=== PATIENT | male | born 1935 | race Caucasian/White ===

== ENCOUNTER 2019-03-18 15:19 | Inpatient (IN) ==
[2019-03-18] MEDS ORDERED: DUONEB 0.5 MG/3 MG NEB ONE (15:49)
--- NOTE | 2019-03-18 15:51 | DR.ABDMALE ---
HPI Time seen Time Seen by Provider: 03/18/19 15:40 PCP Primary Care Physician: SANG Complaint Chief Complaint Doctors Comments: An 83 y/o male presenting with nausea and vomiting since yesterday. His spouse states that he vomited everytime he ate or drank. He was seen by his PCP 2 days ago for cold/sinus issues. At that time he states he received an injection and antibiotic. In triage the nurse was concerned with his breathing and BP. He has no c/o chest pain. Chief Complaint:: NASAL CONGESTION AND SAW DR. DOMÍNGUEZ ON THURSDAY AND WAS GIVEN INJECTION AND ANTIBIOTIC. SINCE THEN HAS HAD INCREASED ABD PAIN WITH NAUSEA AND VOMITING. NO DIARRHEA. Reviewed Nurses Notes Review: Yes Mode of arrival Mode of Arrival: Ambulatory Timing Onset of Chief Complaint: 03/16/19 Came on: Gradually PMH PMH Past Medical History: Yes Past Medical History: Arthritis, CHF, Coronary Artery Disease, Dyslipidemia, Hypertension and VA Past Surgical History: Yes Surgical History: CABG/Valve Surgery Past Surgical History Comment: BACK SURGERY AT AGE 20 Family History History of Family Medical Conditions: Yes Family Medical History: Diabetes Mellitus, VA, Coronary Artery Disease and Hypertension Social History Type of Tobacco Use: Cigarettes Alcohol Use: None Do you use any recreational Drugs:: No Lives With: Spouse Lives Where: Home infectious screening In the last 2 months have you had wt loss of >10#?: NO Have you had fever, night sweats or hemotysis?: No Have you traveled outside the country in the last 6 months?: No Isolation: Standard ROS Review of Systems Constitutional: No Symptoms Reported Eyes: No Symptoms Reported ENTM: No Symptoms Reported Respiratoy: No Symptoms Reported Cardiovascular: No Symptoms Reported Gastrointestinal/Abdominal: Nausea and Vomiting Genitourinary: No Symptoms Reported Neurological: No Symptoms Reported Musculoskeletal: No Symptoms Reported Integumentary: No Symptoms Reported Hematologic/Lymphatic: No Symptoms Reported Endocrine: No Symptoms Reported Psychiatric: No Symptoms Reported PE Vital Signs Vital Signs: Temp Pulse Resp BP BP Pulse Ox 03/18/19 15:27 97.6 F 60 24 116/64 88 L 07/14/15 10:00 115/63 General Limitations: No Limitations General Appearance: Alert and In No Apparent Distress Head Head Exam: Normal Inspection, Atraumatic and Normocephalic Eyes Eye exam: Normal Appearance, PERRL and EOMI ENT ENT Exam: Normal Exam, Normal Oropharynx and Mucous Membranes Moist Neck Neck Exam: Normal Inspection, Full ROM and Trachea Midline Chest Chest Inspection: Normal Inspection and Symmetric Chest Wall Rise Respiratory Respiratory Exam: Normal Lung Sounds Bilat Cardiovascular Cardiovascular Exam: Regular Rate, Normal Rhythm, +S1 and +S2 Abdominal Exam Abdominal Exam: Normal Inspection, Normal Bowel Sounds and Soft Rectal Rectal Exam: Deferred Back Back Exam: Normal Inspection and Full ROM Extremeties Extremities Exam: Normal Inspection and Full ROM Exam: Male: Deferred Neurologic Neurological Exam: Alert and Oriented X3 Psychiatric Psychiatric Exam: Normal Affect and Normal Mood Skin Skin Exam: Dry and Normal Color COURSE Reevaluation 1st: Improved 2nd: Improved Consultation Consultation Comments: Case presentation and findings were discussed with recreation programmer provider, Dr. SPARKS. He agrees to have pt. admitted to his service. Education/Counseling Education/Counseling: Patient, Family, Education and Counseling Educated On: Treatment, Diagnosis, Prognosis and Needs for Follow Up ROR Labs Reviewed Laboratory Results Reviewed?: Yes Result Diagrams: 03/18/19 15:53 03/18/19 15:53 Laboratory: WBC 9.1 X10^3/uL (3.6-10.0) 03/18/19 15:53 RBC 4.19 X10^6/uL (4.7-6.0) L 03/18/19 15:53 Hgb 13.6 g/dL (13.5-18.0) 03/18/19 15:53 Hct 40.9 % (42.0-54.0) L 03/18/19 15:53 MCV 97.7 fL (80.0-100.0) 03/18/19 15:53 MCH 32.6 pg (27.0-34.0) 03/18/19 15:53 MCHC 33.4 g/dL (33.0-35.0) 03/18/19 15:53 RDW 15.2 % (11.6-16.5) 03/18/19 15:53 Plt Count 147 X10^3/uL (150.0-450.0) L 03/18/19 15:53 MPV 8.5 fL (7.4-11.0) 03/18/19 15:53 Neut % (Auto) 78.6 % (42.0-75.0) H 03/18/19 15:53 Lymph % (Auto) 8.2 % (21.0-51.0) L 03/18/19 15:53 [place] % (Auto) 13.0 % (0.0-13.0) 03/18/19 15:53 Eos % (Auto) 0.0 % (0.9-2.9) L 03/18/19 15:53 Baso % (Auto) 0.2 % (0.2-1.0) 03/18/19 15:53 Neut # (Auto) 7.2 x10^3/uL (2.2-4.8) H 03/18/19 15:53 Lymph # (Auto) 0.7 X10^3/uL (1.3-2.9) L 03/18/19 15:53 [place] # (Auto) 1.2 x10^3/uL (0.3-0.8) H 03/18/19 15:53 Eos # (Auto) 0.0 x10^3/uL (0.0-0.2) 03/18/19 15:53 Baso # (Auto) 0.0 X10^3/uL (0.0-0.1) 03/18/19 15:53 Absolute Nucleated RBC 0.2 /100WBC 03/18/19 15:53 Sample Site Rrad 03/18/19 17:14 ABG pH 7.350 (7.35-7.45) 03/18/19 17:14 ABG pCO2 53.0 mmHg (35.0-45.0) H* 03/18/19 17:14 ABG pO2 44.0 mmHg (80.0-100.0) L* 03/18/19 17:14 ABG HCO3 29.3 mmol/L (22-26) H 03/18/19 17:14 ABG O2 Saturation 77.0 % (90-100) L* 03/18/19 17:14 ABG Base Excess 2.7 mmol/L (-2.0-2.0) H 03/18/19 17:14 [place] Test Pos 03/18/19 17:14 A-a Gradient 118.0 mmHg 03/18/19 17:14 FiO2 32.0 03/18/19 17:14 Blood Gas Comments Pt charu well elj 03/18/19 17:14 Sodium 137 mmol/L (136-145) 03/18/19 15:53 Corrected Sodium TNP 03/18/19 15:53 Potassium 4.8 mmol/L (3.5-5.1) 03/18/19 15:53 Chloride 98 mmol/L (98-107) 03/18/19 15:53 Carbon Dioxide 29.4 mmol/L (21-32) 03/18/19 15:53 BUN 42 mg/dL (7-18) H 03/18/19 15:53 Creatinine 2.46 mg/dL (0.70-1.30) H 03/18/19 15:53 Est GFR (MDRD) Af Amer 33 (>60) L 03/18/19 15:53 Est GFR (MDRD) Non-Af 27 (>60) L 03/18/19 15:53 Glucose 97 mg/dL (65-99) 03/18/19 15:53 Calcium 9.9 mg/dL (8.5-10.1) 03/18/19 15:53 Corrected Calcium TNP 03/18/19 15:53 Total Bilirubin 1.00 mg/dL (0.2-1.0) 03/18/19 15:53 AST 318 Units/L (15-37) H 03/18/19 15:53 ALT 283 Units/L (12-78) H 03/18/19 15:53 Alkaline Phosphatase 85 Units/L (46-116) 03/18/19 15:53 Creatine Kinase 91 Units/L (39-308) 03/18/19 15:53 CK-MB (CK-2) 2.3 ng/mL (0-4.0) 03/18/19 15:53 CK/CKMB % Calc 2.5 % (<4) 03/18/19 15:53 Troponin I 0.03 ng/mL (0-1.5) 03/18/19 15:53 B-Natriuretic Peptide 2650 pg/mL (0-79) H* 03/18/19 15:53 Total Protein 7.2 g/dL (6.4-8.2) 03/18/19 15:53 Albumin 3.5 g/dL (3.4-5.0) 03/18/19 15:53 Globulin 3.7 g/dL (2.5-4.5) 03/18/19 15:53 Albumin/Globulin Ratio 0.9 Ratio (1.1-2.1) L 03/18/19 15:53 Other Results Comments: Unchanged, moderately severe cardiomegaly. Atelectasis, Rt. lung base.- CXR report EKG Rate: 60 [place]: Normal Rhythm: Paced Block: None Hypertrophy: None Opioid Opioid Risk Tool Age (Levon box if 16-45): No History of Preadolescent Sexual Abuse: No Total: 0 Total Score Risk Category: Low Risk Copyright: [facility] predicting aberrant behaviors Diagnosis Discharge Problem: Chronic kidney disease (CKD) stage G3a/A1, moderately decreased glomerular filtration rate (GFR) between 45-59 mL/min/1.73 square meter and albuminuria creatinine ratio less than 30 mg/g, Old inferior wall myocardial infarction, Thrombocytopenia, Atelectasis A-fib Qualifiers: Atrial fibrillation type: unspecified Qualified Code(s): I48.91 - Unspecified atrial fibrillation Hypotension Qualifiers: Hypotension type: unspecified hypotension type Qualified Code(s): I95.9 - Hypotension, unspecified
[2019-03-18] MEDS ORDERED: DUONEB 0.5 MG/3 MG ONE (15:58)
[2019-03-18 16:05] LABS: BASOPHILS % (AUTO) 0.2 % (0.2-1.0); HEMATOCRIT 40.9 % (42.0-54.0); HEMOGLOBIN 13.6 g/dL (13.5-18.0); LYMPHOCYTES # (AUTO) 0.7 X10^3/uL (1.3-2.9); LYMPHOCYTES % (AUTO) 8.2 % (21.0-51.0); MEAN CORPUSCULAR HEMOGLOBIN 32.6 pg (27.0-34.0); MEAN CORPUSCULAR HGB CONC 33.4 g/dL (33.0-35.0); MEAN CORPUSCULAR VOLUME 97.7 fL (80.0-100.0); MEAN PLATELET VOLUME 8.5 fL (7.4-11.0); MONOCYTES # (AUTO) 1.2 x10^3/uL (0.3-0.8); NEUTROPHILS # (AUTO) 7.2 x10^3/uL (2.2-4.8); NEUTROPHILS % (AUTO) 78.6 % (42.0-75.0); PLATELET COUNT 147 X10^3/uL (150.0-450.0); RED BLOOD COUNT 4.19 X10^6/uL (4.7-6.0); RED CELL DISTRIBUTION WIDTH 15.2 % (11.6-16.5); WHITE BLOOD COUNT 9.1 X10^3/uL (3.6-10.0)
--- NOTE | 2019-03-18 16:13 | RAD ---
History: Increasing abdominal pain with nausea and vomiting. Nasal congestion. Study: AP chest Comparison: July 14, 2015 graph findings: There is unchanged moderate cardiomegaly status post CABG. There is an intact AICD wire via the left subclavian vein. There is relatively limited inspiration with subsegmental atelectasis at the right lung base. There is no obvious effusion. Impression: 1. Unchanged moderately severe cardiomegaly 2. Subsegmental atelectasis at the right lung base Reported By:
[2019-03-18 16:18] LABS: ALANINE AMINOTRANSFERASE 283 Units/L (12-78); ALBUMIN 3.5 g/dL (3.4-5.0); ALKALINE PHOSPHATASE 85 Units/L (46-116); ASPARTATE AMINO TRANSFERASE 318 Units/L (15-37); BLOOD UREA NITROGEN 42 mg/dL (7-18); CALCIUM 9.9 mg/dL (8.5-10.1); CARBON DIOXIDE 29.4 mmol/L (21-32); CHLORIDE 98 mmol/L (98-107); CREATININE 2.46 mg/dL (0.70-1.30); SODIUM 137 mmol/L (136-145); TOTAL PROTEIN 7.2 g/dL (6.4-8.2); eGFR NON BLACK RACES 27 (>60)
[2019-03-18] MEDS ORDERED: ZOFRAN INJ 4 MG VIAL IVP ONE (16:24)
[2019-03-18] MEDS ORDERED: NS 500 ML IV 500 ML IV ONE ×2 (16:24→16:53)
[2019-03-18 16:52] LABS: CKMB % 2.5 % (<4); CREATINE KINASE MB 2.3 ng/mL (0-4.0); TROPONIN I 0.03 ng/mL (0-1.5)
[2019-03-18] MEDS ORDERED: ZOFRAN INJ 4 MG VIAL ONE (16:53)
[2019-03-18 17:21] LABS: ABG BASE EXCESS 2.7 mmol/L (-2.0-2.0); ABG HCO3 29.3 mmol/L (22-26)
[2019-03-18 17:22] LABS: ABG ALLEN TEST POS
[2019-03-18] MEDS ORDERED: BETAPACE AF PO ONE (21:12)
[2019-03-18] MEDS ORDERED: CRESTOR TAB 10 MG PO ONE (21:12)
[2019-03-18] MEDS: NS 1000 ML 1,000 ML IV SCH (21:15)
[2019-03-18] MEDS: BETAPACE AF PO SCH (21:16)
[2019-03-18] MEDS: RANEXA PO SCH (21:16)
[2019-03-18] MEDS: CRESTOR TAB 10 MG PO SCH (21:16)
[2019-03-18 22:33] VITALS: BMI 29.3
[2019-03-19] MEDS: DUONEB 0.5 MG/3 MG NEB SCH ×4 (00:35→17:19)
[2019-03-19] MEDS: NS 1000 ML 1,000 ML IV SCH ×4 (04:03→20:18)
[2019-03-19 05:21] LABS: BASOPHILS % (AUTO) 0.2 % (0.2-1.0); EOSINOPHILS % (AUTO) 0.1 % (0.9-2.9); HEMATOCRIT 40.2 % (42.0-54.0); HEMOGLOBIN 13.5 g/dL (13.5-18.0); LYMPHOCYTES # (AUTO) 0.8 X10^3/uL (1.3-2.9); LYMPHOCYTES % (AUTO) 10.4 % (21.0-51.0); MEAN CORPUSCULAR HEMOGLOBIN 32.4 pg (27.0-34.0); MEAN CORPUSCULAR HGB CONC 33.5 g/dL (33.0-35.0); MEAN CORPUSCULAR VOLUME 96.8 fL (80.0-100.0); MEAN PLATELET VOLUME 8.5 fL (7.4-11.0); MONOCYTES # (AUTO) 0.9 x10^3/uL (0.3-0.8); MONOCYTES % (AUTO) 11.2 % (0.0-13.0); NEUTROPHILS % (AUTO) 78.1 % (42.0-75.0); PLATELET COUNT 119 X10^3/uL (150.0-450.0); RED BLOOD COUNT 4.15 X10^6/uL (4.7-6.0); RED CELL DISTRIBUTION WIDTH 15.1 % (11.6-16.5); WHITE BLOOD COUNT 7.7 X10^3/uL (3.6-10.0)
[2019-03-19 05:43] LABS: ALANINE AMINOTRANSFERASE 314 Units/L (12-78); ALBUMIN 2.8 g/dL (3.4-5.0); ALKALINE PHOSPHATASE 70 Units/L (46-116); ASPARTATE AMINO TRANSFERASE 340 Units/L (15-37); BLOOD UREA NITROGEN 45 mg/dL (7-18); CALCIUM 8.9 mg/dL (8.5-10.1); CARBON DIOXIDE 28.5 mmol/L (21-32); CHLORIDE 102 mmol/L (98-107); COR CA(FOR HYPOALB) 9.9 mg/dL (8.5-10.1); SODIUM 138 mmol/L (136-145); TOTAL PROTEIN 6.2 g/dL (6.4-8.2); eGFR NON BLACK RACES 31 (>60)
[2019-03-19] MEDS: RANEXA PO SCH ×2 (08:07→20:18)
[2019-03-19] MEDS: ZyrTEC SYRUP 1 MG/ML 5ml unit dose PO SCH (08:07)
[2019-03-19] MEDS: BETAPACE AF PO SCH ×2 (08:07→20:18)
[2019-03-19] MEDS ORDERED: ZyrTEC TAB 10 MG PO SCH (09:00)
[2019-03-19] MEDS ORDERED: LASIX IVP ONE ×2 (10:08→13:59)
[2019-03-19] MEDS ORDERED: LASIX ONE (13:59)
[2019-03-19] MEDS: LEVAQUIN TAB 500 MG PO SCH (14:04)
[2019-03-19] MEDS ORDERED: ASTELIN NASAL SPRAY ENOSTRIL ONE (14:09)
[2019-03-19] MEDS: FLONASE NASAL SPRAY ENOSTRIL SCH (14:10)
[2019-03-19] MEDS: ASTELIN NASAL SPRAY ENOSTRIL SCH ×3 (14:10→21:17)
[2019-03-19] MEDS: CRESTOR TAB 10 MG PO SCH (20:18)
[2019-03-19] MEDS: LASIX IVP SCH (20:19)
[2019-03-20] MEDS: DUONEB 0.5 MG/3 MG NEB SCH ×4 (00:05→17:10)
[2019-03-20] MEDS: NS 1000 ML 1,000 ML IV SCH (05:53)
--- NOTE | 2019-03-20 06:13 | RAD ---
HISTORY: SOB Study: Portable chest Comparison: 03/20/2019 Findings: Stable cardiomediastinal silhouette with sequelae of sternotomy. AICD again noted. Right hemidiaphragm elevation with right basilar atelectasis again seen. The dense left retrocardiac opacity unchanged. Mid and upper lungs appear grossly clear. No visible pneumothorax or gross effusion. IMPRESSION: 1. Stable exam with bibasilar opacities. Reported By:
[2019-03-20] MEDS: ASTELIN NASAL SPRAY ENOSTRIL SCH ×2 (06:24→21:29)
[2019-03-20] MEDS: LASIX IVP SCH ×2 (08:44→20:01)
[2019-03-20] MEDS ORDERED: LASIX ONE (08:54)
[2019-03-20] MEDS ORDERED: ALBUMIN HUMAN 25%- 100 ML 100 ML ONE (08:55)
[2019-03-20] MEDS ORDERED: LASIX IVP SCH (09:00)
[2019-03-20] MEDS ORDERED: ALBUMIN HUMAN 25%- 100 ML 100 ML IV SCH (09:00)
[2019-03-20] MEDS ORDERED: LASIX IVP ONE (09:00)
[2019-03-20] MEDS: BETAPACE AF PO SCH ×2 (09:02→20:01)
[2019-03-20] MEDS: FLONASE NASAL SPRAY ENOSTRIL SCH (09:02)
[2019-03-20] MEDS: LEVAQUIN TAB 500 MG PO SCH (09:02)
[2019-03-20] MEDS: RANEXA PO SCH ×2 (09:02→20:01)
[2019-03-20] MEDS: ZyrTEC SYRUP 1 MG/ML 5ml unit dose PO SCH (09:03)
[2019-03-20 09:43] LABS: BASOPHILS % (AUTO) 0.2 % (0.2-1.0); EOSINOPHILS % (AUTO) 0.4 % (0.9-2.9); HEMATOCRIT 40.3 % (42.0-54.0); HEMOGLOBIN 13.3 g/dL (13.5-18.0); LYMPHOCYTES # (AUTO) 0.7 X10^3/uL (1.3-2.9); LYMPHOCYTES % (AUTO) 10.8 % (21.0-51.0); MEAN CORPUSCULAR HGB CONC 32.9 g/dL (33.0-35.0); MEAN CORPUSCULAR VOLUME 97.5 fL (80.0-100.0); MEAN PLATELET VOLUME 8.2 fL (7.4-11.0); MONOCYTES # (AUTO) 0.8 x10^3/uL (0.3-0.8); MONOCYTES % (AUTO) 11.3 % (0.0-13.0); NEUTROPHILS # (AUTO) 5.2 x10^3/uL (2.2-4.8); NEUTROPHILS % (AUTO) 77.3 % (42.0-75.0); PLATELET COUNT 114 X10^3/uL (150.0-450.0); RED BLOOD COUNT 4.14 X10^6/uL (4.7-6.0); RED CELL DISTRIBUTION WIDTH 15.5 % (11.6-16.5); WHITE BLOOD COUNT 6.7 X10^3/uL (3.6-10.0)
[2019-03-20 09:55] LABS: ALBUMIN 2.6 g/dL (3.4-5.0); CALCIUM 8.2 mg/dL (8.5-10.1); CARBON DIOXIDE 28.9 mmol/L (21-32); COR CA(FOR HYPOALB) 9.3 mg/dL (8.5-10.1); CREATININE 2.62 mg/dL (0.70-1.30); TOTAL PROTEIN 5.9 g/dL (6.4-8.2)
[2019-03-20] MEDS: LOVENOX INJ 30 MG SYR SC SCH (20:00)
[2019-03-20] MEDS: CRESTOR TAB 10 MG PO SCH (20:02)
[2019-03-21] MEDS: DUONEB 0.5 MG/3 MG NEB SCH ×4 (00:35→18:38)
[2019-03-21] MEDS: ASTELIN NASAL SPRAY ENOSTRIL SCH ×4 (06:29→21:01)
[2019-03-21] MEDS: FLONASE NASAL SPRAY ENOSTRIL SCH (09:13)
[2019-03-21] MEDS: BETAPACE AF PO SCH ×2 (09:13→20:08)
[2019-03-21] MEDS: RANEXA PO SCH ×2 (09:14→20:08)
[2019-03-21] MEDS: LOVENOX INJ 30 MG SYR SC SCH (09:14)
[2019-03-21] MEDS: ZyrTEC SYRUP 1 MG/ML 5ml unit dose PO SCH (09:15)
[2019-03-21 09:33] LABS: ABG BASE EXCESS 6.7 mmol/L (-2.0-2.0)
[2019-03-21 09:35] LABS: ABG HCO3 33.9 mmol/L (22-26)
[2019-03-21] MEDS: LASIX IVP SCH ×2 (11:01→20:08)
--- NOTE | 2019-03-21 11:23 | US ---
HISTORY: Abdominal pain. Prior history of CHF, CAD, hypertension and ME. Study: Ultrasound of the abdomen complete Comparison: No priors Technique: Grayscale, duplex and color Doppler evaluation of the liver is provided . Findings: The liver is not enlarged. Liver measures 7 mm in length. There is diffuse hepatic steatosis. There is perihepatic ascites present within the intralobar fissure. No evidence of liver mass or ductal ectasia is seen. The common bile duct measures 1.9 mm in caliber. Color and duplex Doppler flow reveals hepatopetal flow of the portal vein. Hepatic venous flow is hepatopetal. There is wall thickening involving the gallbladder wall which measures 6.7 mm. A tiny non shadowing echogenic focus is present within the gallbladder measuring 3.9 mm. This is suspect for a small gallstone. Perihepatic ascitic fluid is seen to surround the gallbladder laterally. Findings are likely on the basis of hypoproteinemia. Pancreas appears normal. Spleen appears normal. IVC is normal. The abdominal aorta is not well seen. Right kidney measures 9.11 cm with 0.75 cm cortical thickness. There is a 3 cm cyst of the right kidney. No solid mass or hydronephrosis is seen. The left kidney measures 10.65 cm in length. The cortical thickness is 0.96 cm. There is a 2.6 cm cyst in the lower pole the left kidney. No solid mass, stone or hydronephrosis is seen. IMPRESSION: Small liver with diffuse steatosis. There is perihepatic ascites. Gallbladder wall thickening may be on the basis of hypoproteinemia. A tiny nonshadowing echogenic focus is present within the gallbladder measuring 3.9 mm. This is suspect for a small gallstone. Simple cysts of both kidneys. No solid mass, stone or hydronephrosis is seen. Reported By:
[2019-03-21 13:56] LABS: AMYLASE 52 Units/L (25-115); LIPASE 140 Units/L (73-393)
[2019-03-21 20:05] LABS: ALBUMIN 2.9 g/dL (3.4-5.0); CALCIUM 8.3 mg/dL (8.5-10.1); CARBON DIOXIDE 27.3 mmol/L (21-32); COR CA(FOR HYPOALB) 9.2 mg/dL (8.5-10.1); CREATININE 2.48 mg/dL (0.70-1.30); TOTAL PROTEIN 6.3 g/dL (6.4-8.2)
[2019-03-21] MEDS ORDERED: POTASSIUM CHLORIDE LIQ 20 MEQ UDC PO PRN (20:06)
[2019-03-21] MEDS ORDERED: POTASSIUM CHL 40 MEQ/NS 0.45% 500 ML IV PRN (20:06)
[2019-03-21] MEDS ORDERED: POTASSIUM CHL 60 MEQ/NS 0.45% 500 ML IV PRN (20:06)
[2019-03-21] MEDS ORDERED: K-RIDER 10 MEQ/NS 100 ML 10 MEQ/100 ML BAG IV PRN (20:06)
[2019-03-21] MEDS ORDERED: KLOR-CON PO PRN (20:06)
[2019-03-21] MEDS ORDERED: MICRO K EXTEN CAP 10 MEQ PO PRN (20:06)
[2019-03-21] MEDS ORDERED: K-DUR TAB 20 MEQ PO PRN (20:06)
[2019-03-21] MEDS: CRESTOR TAB 10 MG PO SCH (20:08)
[2019-03-21] MEDS: MAGNESIUM SULFATE 1 GRAM/100 mL PREMIX 1 GM/100 ML BAG IV PRN ×2 (20:49→21:51)
[2019-03-22] MEDS: DUONEB 0.5 MG/3 MG NEB SCH ×3 (00:50→12:05)
[2019-03-22 04:56] LABS: BASOPHILS % (AUTO) 0.2 % (0.2-1.0); EOSINOPHILS % (AUTO) 0.8 % (0.9-2.9); HEMATOCRIT 40.1 % (42.0-54.0); HEMOGLOBIN 13.1 g/dL (13.5-18.0); LYMPHOCYTES # (AUTO) 0.8 X10^3/uL (1.3-2.9); LYMPHOCYTES % (AUTO) 12.8 % (21.0-51.0); MEAN CORPUSCULAR HGB CONC 32.7 g/dL (33.0-35.0); MEAN CORPUSCULAR VOLUME 97.7 fL (80.0-100.0); MEAN PLATELET VOLUME 8.3 fL (7.4-11.0); MONOCYTES # (AUTO) 0.8 x10^3/uL (0.3-0.8); MONOCYTES % (AUTO) 12.3 % (0.0-13.0); NEUTROPHILS # (AUTO) 4.7 x10^3/uL (2.2-4.8); NEUTROPHILS % (AUTO) 73.9 % (42.0-75.0); PLATELET COUNT 113 X10^3/uL (150.0-450.0); RED BLOOD COUNT 4.11 X10^6/uL (4.7-6.0); RED CELL DISTRIBUTION WIDTH 15.2 % (11.6-16.5); WHITE BLOOD COUNT 6.4 X10^3/uL (3.6-10.0)
[2019-03-22 05:14] LABS: ALBUMIN 2.8 g/dL (3.4-5.0); CALCIUM 7.9 mg/dL (8.5-10.1); COR CA(FOR HYPOALB) 8.9 mg/dL (8.5-10.1); CREATININE 2.31 mg/dL (0.70-1.30); MAGNESIUM 1.9 mg/dL (1.7-2.9); TOTAL PROTEIN 6.2 g/dL (6.4-8.2)
[2019-03-22 05:37] LABS: ABG BASE EXCESS 6.7 mmol/L (-2.0-2.0)
[2019-03-22 05:39] LABS: ABG HCO3 35.2 mmol/L (22-26)
[2019-03-22 05:40] LABS: ABG ALLEN TEST P
[2019-03-22] MEDS: ASTELIN NASAL SPRAY ENOSTRIL SCH ×2 (06:50→13:16)
[2019-03-22] MEDS ORDERED: LASIX ONE (09:17)
[2019-03-22] MEDS: BETAPACE AF PO SCH (09:30)
[2019-03-22] MEDS: RANEXA PO SCH (09:31)
[2019-03-22] MEDS: FLONASE NASAL SPRAY ENOSTRIL SCH (09:31)
[2019-03-22] MEDS: LOVENOX INJ 30 MG SYR SC SCH (09:32)
[2019-03-22] MEDS: ZyrTEC SYRUP 1 MG/ML 5ml unit dose PO SCH (09:33)
[2019-03-22] MEDS ORDERED: LASIX IVP ONE (10:00)
[2019-03-22] MEDS: NYSTATIN SUSP MT SCH ×2 (10:46→13:16)
[2019-03-22] MEDS ORDERED: LEVAQUIN TAB 500 MG PO SCH (11:00)
[2019-03-22 13:12] VITALS: BP 115/61
== END 2019-03-22 13:50 | disposition home health service (06) | DRG 205 ==
LOC: ER 15:20 → ICU 19:16
PROVIDERS: ADMIT Obstetrics & Gynecology Obstetrics; ATTEND Internal Medicine
CPT/HCPCS: 36415; 36600; 71010; 71045; 76700; 80053; 82150; 82550; 82553; 82803; 83690; 83735; 83880; 84484; 85025; 87070; 87205; 93005; 93306; 94640; 94660; 96365; 96374; 97162; 99285; A4216; A4222; A4618; A7030; P9047; J1650; J1940; J2405; J3475; J7030; J7040; J7620